=== PATIENT | female | born 1960 | race Caucasian/White ===

== ENCOUNTER 2019-10-03 08:06 | Outpatient (CLI) | payer BC, SELFPAY ==
--- NOTE | ~2019-10-03 | MR_ITS ---
EXAMINATION: MR knee LT wo con DATE: 10/03/2019 09:32 INDICATION: Ganglion, unspecified site. TECHNIQUE: Magnetic resonance imaging (MRI) of the left knee was performed without intravenous contra st. Sequences included axial PD-weighted FS FSE, coronal PD-weighted FSE and PD-weighted FS FSE, sagi ttal PD-weighted FSE, and sagittal T2-weighted FS FSE. COMPARISON: Left knee MRI 03/09/2018, radiographs 03/22/2019 FINDINGS: Medial compartment: There is a radial tear of body of medial meniscus. There is extensive full-thickness cartilage loss o f femoral condyle with mild subchondral edema-like marrow signal intensity. There is full-thickness c artilage loss of tibial condyle involving the central, medial, and anterior articular surface with mi ld subchondral edema-like marrow signal intensity. Osteophytes are noted. Lateral compartment: Lateral meniscus is normal. There is cartilage surface irregularity of tibial condyle and femoral con dyle. Patellofemoral compartment: There is a partial thickness cartilage loss of patellar medial facet and median ridge and cartilage s urface irregularity of patellar lateral facet. There is deep partial thickness cartilage of medial tr ochlea with mild subchondral edema-like marrow signal intensity. Osteophytes are noted. Ligaments and tendons: The anterior and posterior cruciate ligaments are normal. Medial collateral ligament and lateral sarah ateral ligament complex are intact. The patellar tendon is normal. Fluid: There is a small knee joint effusion. There is a moderate-sized Mendez's cyst. In the subcutaneous fat anterolateral to fibular head, there is a 2.1 x 1.1 x 1.0 cm multiloculated ganglion cyst with surro unding edema. There are small ganglion cysts in Hoffa's fat pad. IMPRESSION: 1. Stable multiloculated ganglion cyst with surrounding edema in the subcutaneous fat anterolateral t o the fibular head. 2. Severe chondrosis of medial compartment, moderate chondrosis of patellofemoral compartment, and mi ld chondrosis of lateral compartment. 3. Tear of medial meniscus. 4. Small knee joint effusion. 5. Moderate-sized Mendez's cyst. Reviewed, dictated and finalized at location A. IMPRESSION: 1. Stable multiloculated ganglion cyst with surrounding edema in the subcutaneo us fat anterolateral to the fibular head. 2. Severe chondrosis of medial compartment, moderate chondrosis of patellofemor al compartment, and mild chondrosis of lateral compartment. 3. Tear of medial meniscus. 4. Small knee joint effusion. 5. Moderate-sized Mendez's cyst.
== END 2019-10-03 08:07 | disposition home or self-care (01) ==
PROVIDERS: PCP Family Medicine Adolescent Medicine; Visit Provider Nurse Practitioner Family
DX: M71.22 Synovial cyst of popliteal space [Baker], left knee (principal); M67.462 Ganglion, left knee; M23.204 Derangement of unspecified medial meniscus due to old tear or injury, left knee
CPT/HCPCS: 73721

== ENCOUNTER 2019-10-30 07:47 | Outpatient (CLI) | payer BC, SELFPAY ==
--- NOTE | 2019-10-30 07:50 | ECG_ITS ---
Measurements Intervals [place] Rate: 78 P: 44 [place]: 172 QRS: -26 QRSD: 108 T: 2 QT: 345 QTc: 394 Interpretive Statements SINUS RHYTHM INCOMPLETE RIGHT BUNDLE BRANCH BLOCK POOR R WAVE PROGRESSION, ANTERIOR LEADS BORDERLINE T WAVE ABNORMALITY- INFERIOR LEADS BASELINE ARTIFACT- I, II, III, AVR, AVL, AVF BORDERLINE ECG Electronically Signed On 10-30-2019 8:13:29 CDT by Chemo Richard D.O.
== END 2019-10-30 07:48 | disposition home or self-care (01) ==
LOC: ANHSURGERY 07:50
PROVIDERS: PCP Family Medicine Adolescent Medicine; Visit Provider Orthopaedic Surgery
DX: Z01.810 Encounter for preprocedural cardiovascular examination (principal); I10 Essential (primary) hypertension; I45.10 Unspecified right bundle-branch block
CPT/HCPCS: 93005

== ENCOUNTER 2019-11-03 00:38 | Outpatient (CLI) | payer BC, SELFPAY ==
[2019-11-03 19:30] LABS: SARS-CoV-2 RNA PCR Negative
== END 2019-11-03 00:39 | disposition home or self-care (01) ==
LOC: ANHCOVIDDT 00:38
PROVIDERS: PCP Family Medicine Adolescent Medicine; Visit Provider Orthopaedic Surgery
DX: Z01.812 Encounter for preprocedural laboratory examination (principal); Z20.828 Contact with and (suspected) exposure to other viral communicable diseases
CPT/HCPCS: 87635; C9803; U0003

== ENCOUNTER 2019-11-06 00:53 | Day surgery (SDC) | payer BC, SELFPAY ==
[2019-10-29 08:59] VITALS: BMI 26.6
--- NOTE | 2019-11-05 08:44 | WPDANESEPPF ---
Anes - Initial Pre Proc Eval Procedure: Operation Date: 11/06/19 11:30 Proposed Procedures p Left Knee Arthroscopy, Proceed As Indicated - Tyson Blanton MD s Excision Left Knee Ganglion Cyst - Tyson Blanton MD Date/Time: 11/05/19 08:44 Surgeon: Tyson Blanton MD Pre Op Diagnosis: left knee medial meniscus tear, left knee ganglion Patient Data Age: 59 Gender: F Height: 1.68 m Weight: 74.84 kg Allergies Allergy/AdvReac Type Severity Reaction Status Date / Time codeine AdvReac Mild N/V Verified 11/06/19 09:49 Home Medications Medication Instructions Recorded Confirmed Type ergocalciferol (vitamin D2) 1,250 50,000 unit PO WEEKLY 01/15/19 11/06/19 History mcg (50,000 unit) capsule lisinopril 10 mg tablet 10 mg PO DAILY 01/15/19 11/06/19 History methylcellulose (laxative) 500 mg 500 mg PO DAILY 01/15/19 11/06/19 History tablet L. gasseri-B. bifidum-B longum 1 cap PO DAILY 10/29/19 11/06/19 History [[facility]] cetirizine 10 mg PO DAILY 10/29/19 11/06/19 History estradiol 1 mg PO DAILY 10/29/19 11/06/19 History Patient hx anesthesia problems: none Family hx anesthesia problems: none [facility] Past Medical History Medical History (Updated 11/05/19 @ 08:41 by Benja Angel DO) Closed fracture Ganglion cyst HTN (hypertension) Left knee DJD PONV (postoperative nausea and vomiting) Rheumatic arteritis Right knee DJD Seasonal allergic rhinitis Surgical History Surgical History H/O: hysterectomy Social History Social History Smoking status: Never smoker Alcohol intake: current Substance use: unknown Spiritual care concerns: No Anes - Eval Final PreProcedure Day of Procedure 11/05/19 08:44 Patient weight: overweight Heart: regular rate and rhythm Lungs: clear to auscultation and normal air movement Airway: Mallampati scale class II Neurological: alert and oriented Last oral intake: >/= 8 hours ASA classification: II Emergent: no Anesthetic plan: proceed Anesthesia type and monitoring: general LMA and standard monitoring Informed Consent: The patient's anesthetic plan and its attendant risks and benefits were discussed with the patient/family/POA. Questions were solicited and answers provided to the satisfaction of the patient/family/POA.
[2019-11-06] VITALS (8 sets, daily range): BP systolic 120–198; BP diastolic 82–105; PULSE 75–81; RESP 10–17; TEMP 36.2–36.4; O2SAT 96–100; BMI 27.1
--- NOTE | 2019-11-06 07:24 | WPDHPUPDATE1 ---
History and Physical Update Update Date/Time: 11/06/19 07:24 History and Physical has been reviewed, including an updated exam of the patient. There are NO changes in the patient's condition. Risks, benefits, and alternatives have been discussed and questions answered. Patient agrees to proceed with procedure.
--- NOTE | 2019-11-06 09:50 | SUR.PREOP ---
PT STATES SHE STOPPED ALL HOME MEDICATIONS ONE WEEK AGO. SHE HAS CRUTCHES AT HOME. REFUSED CRUTCH TRAINING.
[2019-11-06] MEDS: CELECOXIB 200 MG CAPSULE PO (09:57)
[2019-11-06] MEDS: ACETAMINOPHEN 500 MG TABLET 1000 MG PO (09:57)
[2019-11-06] MEDS: LACTATED RINGERS 1,000 ML 30 ML IV CONT ×2 (10:12→13:09)
--- NOTE | 2019-11-06 10:21 | SUR.PREOP ---
1002; DR ROSAS NOTIFIED OF VS TAKEN AT 0938 AND AGAIN AT 1000. BP HIGH. PT HAS NOT TAKEN HER LISINOPRIL FOR ONE WEEK. STATES WILL MONITOR IN OR AND TREAT ACCORDINGLY.
[2019-11-06] MEDS: FAMOTIDINE 20 MG/2 ML VIAL IV PUSH (10:27)
[2019-11-06] MEDS: SCOPOLAMINE 1.5 MG PATCH TRANSDERM (10:27)
[2019-11-06] MEDS: ceFAZolin 2 GM/D5W 50 ML 2 GM/50 ML BAG IVPB (11:27)
--- NOTE | 2019-11-06 13:02 | PM.OP ---
Procedure Note - Brief Procedure Note - Brief Date of procedure: 11/06/19 Pre-op diagnosis: left knee medial meniscus tear, left knee ganglion Post-op diagnosis: same Procedure performed: LEFT KNEE SCOPE WITH PARTIAL MEDIAL MENISECTOMY AND MINOR SYNOVECTOMY, WITH EXCISION OF GANGLION LEFT KNEE Anesthesia: GLMA Surgeon: Tyson Blanton MD Estimated blood loss (mL): 20 Drains: No Packing: No Pathology: yes Complications: No immediate complications Condition: stable Disposition: PACU
--- NOTE | 2019-11-06 16:54 | OP_ITS ---
DATE OF PROCEDURE: 11/06/2019 PREOPERATIVE DIAGNOSES: 1. Left knee medial meniscus tear and arthritis. 2. Mass, left knee. PROCEDURE: 1. Left knee arthroscopy with partial medial meniscectomy and minor synovectomy. 2. Excision of mass, left knee. ANESTHESIA: General. COMPLICATIONS: None. INDICATIONS: This is a 59-year-old female, who has arthritis and medial-sided knee pain. She also was diagnosed with a medial meniscus tear. She also had pain on the lateral side of her knee due to a large ganglion cyst and this was causing daily pain. She was indicated for left knee arthroscopy and left knee excision of the mass. DESCRIPTION OF PROCEDURE: The patient was taken to the operating room in stable condition and placed in supine position. General anesthesia was induced and then the left lower extremity was prepped and draped sterilely from the toes to the thigh. Superomedial portal was used for the outflow cannula. Inferolateral portal was used for the camera. The camera was introduced. There was grade 3 chondromalacia and there was an area of complete cartilage loss. There was a lot of synovitis in the superomedial compartment. The medial compartment was entered. There was a large area of full-thickness cartilage loss. There was a complex tear of the medial meniscus. A medial portal was then established and the meniscus tear was debrided down to a smooth base. Next, the ACL was identified and it was intact. There was some partial tears to it, but for the most part it appeared to be intact. Direct visualization with a Karime's and anterior drawer test were performed as well and it seemed that the ACL was working fine. Next, the lateral compartment was entered. There was no tear to the lateral meniscus and there was no significant chondromalacia. Next, patellofemoral joint underwent chondroplasty and then synovectomy was performed in Hoffa synovium compartment due to impingement in deep flexion. Next, the instruments were removed from the knee joint after thorough irrigation and then the arthroscopic wounds were approximated with 4-0 nylon suture and then after that, the left lower extremity was redraped and the surgical team re-gowned and gloved and then the tourniquet was inflated and the left lower extremity then was identified, and there was a large mass at the level just anterior to the fibula. Incision was made over that region down to the subcutaneous tissues. The dissection continued until the mass, which was palpated was identified. It appeared to be a ganglion cyst. Dissection continued and then as we got deeper, the mass started to progress more anteriorly and superiorly until it was at the level anterior to the fibular head. Dissection then continued. Soft tissues were removed from the mass and the mass then was excised in its entirety at the level just proximal to the fibular head. The wound was irrigated thoroughly. The bleeders were cauterized after the tourniquet was deflated. The mass was sent for pathology studies. The wound was then irrigated thoroughly. The bleeders were cauterized again and then the deep fascial layers were approximated with #0 Vicryl suture. Subcutaneous tissues were approximated with 2-0 Vicryl, and then the skin was approximated with 3-0 running Quill type braided suture, and then Dermabond was placed, and then Steri-Strips were placed and then a sterile dressing was applied. The wounds on the arthroscopic site that had been approximated, then underwent dressing and the whole knee was wrapped in 4x4s and Webril, and then the patient was then extubated and sent to Recovery in stable condition. Dacia I MT: Sara
== END 2019-11-06 15:05 | disposition home or self-care (01) ==
PROVIDERS: PCP Family Medicine Adolescent Medicine; Visit Provider Orthopaedic Surgery
PROC: (CPT 29870; principal; 2019-11-06 11:30)
PROC: (CPT 29881; 2019-11-06 11:30)
DX: S83.232A Complex tear of medial meniscus, current injury, left knee, initial encounter (principal); X58.XXXA Exposure to other specified factors, initial encounter; Y93.9 Activity, unspecified; M67.462 Ganglion, left knee; I10 Essential (primary) hypertension
CPT/HCPCS: 29881; 27630; 88304; 88305; A9270; J0690; J2250; J2405; J2704; J3010; J7120

== ENCOUNTER → 2020-04-10 07:26 | Outpatient (CLI) | payer BC, SELFPAY ==
--- NOTE | ~2020-04-10 | MM_ITS ---
EXAMINATION: MM screening [facility] BI w alan HISTORY: Screening TECHNIQUE: Craniocaudal and mediolateral oblique 3-D tomosynthesis images were obtained and synthetic 2-D images were generated. CAD analysis was submitted and interpreted. COMPARISON: Comparison to multiple prior studies sequentially, with oldest reviewed study dated 09/28. BREAST PARENCHYMAL COMPOSITION: The breasts are heterogeneously dense, which may obscure small masses . FINDINGS: There is a developing cluster of calcifications in the upper inner quadrant of the right br east. The left breast is stable without evidence for malignancy. IMPRESSION: 1. Developing cluster of calcifications upper inner quadrant of the right breast. 2. Magnification views are recommended. BI-RADS Category 0: Incomplete: Needs additional imaging evaluation. Reviewed, dictated and finalized at location A. DINATOR OF ONLINE PROGRAMS IMPRESSION: 1. Developing cluster of calcifications upper inner quadrant of the right breas t. 2. Magnification views are recommended. BI-RADS Category 0: Incomplete: Needs additional imaging evaluation.
== END ==
PROVIDERS: PCP Family Medicine Adolescent Medicine; Visit Provider Obstetrics & Gynecology Gynecology
DX: Z12.31 Encounter for screening mammogram for malignant neoplasm of breast (principal); R92.8 Other abnormal and inconclusive findings on diagnostic imaging of breast
CPT/HCPCS: 77063; 77067

== ENCOUNTER → 2020-05-07 08:23 | Outpatient (CLI) | payer BC, SELFPAY ==
--- NOTE | ~2020-05-07 | MM_ITS ---
EXAMINATION: MM diagnostic mammo unilat RT HISTORY: Indeterminate right breast calcifications on screening mammogram TECHNIQUE: Additional views of the right breast were performed. CAD analysis was submitted and interp reted. COMPARISON: 04/02/2020, 11/20/2018, 10/25/2017, 10/08/2016 FINDINGS: There are grouped coarse heterogeneous calcifications in the posterior third of the upper i nner breast at the 1:00 location 7 cm from the nipple. No associated mass is identified. IMPRESSION: 1. Suspicious right breast calcifications. 2. Stereotactic biopsy is recommended. BI-RADS category 4, suspicious findings. Reviewed, dictated and finalized at location A. SEQUENCING ASSOCIATE
== END ==
PROVIDERS: PCP Family Medicine Adolescent Medicine; Visit Provider Obstetrics & Gynecology Gynecology
DX: R92.1 Mammographic calcification found on diagnostic imaging of breast (principal)
CPT/HCPCS: 77065

== ENCOUNTER 2020-05-19 12:39 | Outpatient (CLI) | payer BC, SELFPAY ==
--- NOTE | ~2020-05-19 | MM_ITS ---
EXAMINATION: MM stereotactic bx RT, MM post biopsy diagnostic RT, MM stereotactic specimen RT, Specim en Radiograph, Tissue Marker Clip Placement, Unilateral Mammogram DATE: 05/19/2020 14:26 (accession [id number]), 05/19/2020 14:28 (accession [id number]), 05/19 14:27 (accession [id number]) INDICATION: Abnormal mammogram: Suspicious calcifications reported in posterior third of upper inner right breast. TECHNIQUE AND FINDINGS: The risks and potential benefits of the procedure were discussed with the patient and written informe d consent was obtained. Timeout procedure was performed. The patient was placed in the prone position on the dedicated stereotactic table with the right breast in mediolateral compression, and the area of interest was localized and targeted utilizing digital imaging with stereotaxis. After sterile preparation of the skin, 1% lidocaine was utilized for local anesthesia at the skin pun cture site and 1% lidocaine with epinephrine was utilized for deeper local anesthesia/is about the bi opsy site. A 9G ScaleXtreme vacuum assisted biopsy needle was advanced to the level of the calcification o f interest from a medial approach utilizing stereotactic guidance and a total of 15 tissue core biops ies were obtained. A specimen radiograph demonstrates that the calcifications of interest are included within the tissue cores. A tissue marker clip was then placed at the biopsy site. A digital mammographic exposure co nfirmed the successful deployment of the biopsy marker. The needle was removed and hemostasis was ac hieved. A sterile bandage was applied. The patient tolerated the procedure well and there is no kim dence of significant immediate complication. The patient was given verbal as well as written postpro cedural instructions prior to discharge from the department. Tissue cores were submitted to surgical pathology for histologic analysis. A 2-view right unilateral digital mammogram was obtained post procedure, demonstrating the tissue mar ker clip in expected position. IMPRESSION: 1. Successful stereotactic biopsy of upper inner quadrant right breast calcifications, followed by tissue marker clip placement. Please refer to pathology report for histologic analysis. Reviewed, dictated and finalized at Location A. Reviewed, dictated and finalized at location A. UE COORDINATOR IMPRESSION: 1. Successful stereotactic biopsy of upper inner quadrant right breast calcif ications, followed by tissue marker clip placement. Please refer to pathology report for histologic analysis. IMPRESSION: 1. Successful stereotactic biopsy of upper inner quadrant right breast calcif ications, followed by tissue marker clip placement. Please refer to pathology report for histologic analysis.
== END 2020-05-19 12:40 | disposition home or self-care (01) ==
PROVIDERS: PCP Family Medicine Adolescent Medicine; Visit Provider Family Medicine Adolescent Medicine
DX: N63.10 Unspecified lump in the right breast, unspecified quadrant (principal); N60.31 Fibrosclerosis of right breast; N60.81 Other benign mammary dysplasias of right breast; N60.41 Mammary duct ectasia of right breast
CPT/HCPCS: 19081; 77065; 88305; A4648

== ENCOUNTER 2020-09-25 07:59 | Outpatient (CLI) | payer OTHER, SELFPAY ==
--- NOTE | 2020-09-25 08:52 | ECG_ITS ---
Measurements Intervals [place] Rate: 84 P: 48 [place]: 172 QRS: -23 QRSD: 91 T: 11 QT: 341 QTc: 403 Interpretive Statements SINUS RHYTHM INCOMPLETE RIGHT BUNDLE BRANCH BLOCK DELAYED PRECORDIAL R/S TRANSITION BORDERLINE T WAVE ABNORMALITY- ANT/INF LEADS BASELINE ARTIFACT- I, II, III, AVR, AVL, AVF BORDERLINE ECG Electronically Signed On 09-25-2020 9:08:42 CDT by Chemo Richard D.O.
[2020-09-25 09:16] LABS: Basophils Percent Auto 0.6 % (0.2-1.2); Eosinophils Absolute Auto 0.1 K/mm3 (0-0.3); Eosinophils Percent Auto 0.9 % (0-4.4); Hemoglobin 14.5 g/dL (12.0-15.0); Immature Granulocyte Absolute 0.03 K/mm3 (0.00-0.031); Immature Granulocyte Percent A 0.5 % (0-0.5); Lymphocytes Percent Auto 26.7 % (18.3-44.2); Mean Corpuscular HGB Conc 31.5 g/dl (32-36); Mean Corpuscular Hemoglobin 29.4 pg (26-34); Mean Corpuscular Volume 93.3 fl (80-100); Monocytes Absolute Auto 0.5 K/mm3 (0.1-0.6); Monocytes Percent Auto 7.8 % (2.6-8.5); Neutrophils Percent Auto 63.5 % (45.5-73.1); Platelet Count Result 235 k/mm3 (150-375); Red Blood Count 4.93 M/mm3 (4.2-5.4); Red Cell Distribution Width 12.8 % (11.5-14.5); White Blood Count 6.4 K/mm3 (4.5-10.0)
[2020-09-25 09:17] LABS: Add Urine Microscopic? NO; Appearance Urine Clear (Clear); Bilirubin Urine Negative (Negative); Blood Urine Negative (Negative); Color Urine Yellow (Yellow); Glucose Urine UA Negative (Negative); Ketones Urine Negative (Negative); Leukocyte Esterase Ur Negative LEU/UL (Negative); Nitrate Urine Negative (Negative); Protein Urine Negative (Negative); Specific Grav Ur 1.016 (1.001-1.035); Urobilinogen Urine Negative mg/dL (<2.0)
[2020-09-25 09:25] LABS: Albumin Level 4.1 g/dL (3.5-5.1); Anion Gap 6 mmol/L (8-16); Blood Urea Nitrogen 11 mg/dL (7-17); Calcium 9.4 mg/dL (8.4-10.2); Carbon Dioxide 30 mmol/L (22-30); Chloride 103 mmol/L (98-107); Estimated Glomerular Filt Rate > 60; Glucose 93 mg/dL (65-105); Potassium 3.7 mmol/L (3.4-5.0); Sodium 139 mmol/L (137-145)
[2020-09-25 09:27] LABS: Urine Cotinine NEGATIVE
[2020-09-25 09:42] LABS: Hemoglobin A1C 5.4 % (<5.7)
[2020-09-25 09:54] LABS: Prothrombin Time 12.8 Seconds (11.1-14.7)
[2020-09-25 09:56] LABS: Partial Thromboplastin Time 24.3 SECONDS (22.3-36.8)
== END 2020-09-25 08:00 | disposition home or self-care (01) ==
LOC: ANHSURGERY 08:05
PROVIDERS: PCP Family Medicine Adolescent Medicine; Visit Provider Orthopaedic Surgery
DX: Z01.818 Encounter for other preprocedural examination (principal); M17.12 Unilateral primary osteoarthritis, left knee
CPT/HCPCS: 80048; 80307; 81003; 82040; 83036; 85025; 85610; 85730; 87081; 93005

== ENCOUNTER 2020-10-22 00:18 | Day surgery (SDC) | payer OTHER, SELFPAY ==
[2020-09-25 08:25] VITALS: BP 196/98; PULSE 92; RESP 18; TEMP 36.7; O2SAT 97; BMI 28.1
[2020-10-22] VITALS (13 sets, daily range): BP systolic 105–143; BP diastolic 55–86; PULSE 75–95; RESP 9–22; TEMP 36.2–36.7; O2SAT 94–99; BMI 27.3
--- NOTE | ~2020-10-22 | XR_ITS ---
EXAMINATION: XR knee LT 2V DATE: 10/22/2020 10:04 INDICATION: Left knee arthroplasty. Postop. TECHNIQUE: 2 views of left knee were obtained. COMPARISON: Left knee radiographs 07/31/2020 FINDINGS: There is a total left knee arthroplasty without patellar resurfacing in near-anatomic align ment. No fracture. There is gas in the knee joint and soft tissues, consistent with recent surgery. A nterior skin wan are noted. IMPRESSION: 1. Total left knee arthroplasty in near-anatomic alignment. Reviewed, dictated and finalized at location A.
[2020-10-22] MEDS: ACETAMINOPHEN 500 MG TABLET 1000 MG PO (06:51)
--- NOTE | 2020-10-22 06:59 | WPDANESEPPF ---
Anes - Initial Pre Proc Eval Procedure: Operation Date: 10/22/20 07:30 Proposed Procedures p Left Total Knee Arthroplasty - Tyson Blanton MD Date/Time: 10/22/20 06:59 Surgeon: Tyson Blanton MD Pre Op Diagnosis: Left Knee DJD Patient Data Age: 60 Gender: F Height: 1.66 m Weight: 75.8 kg Last Vital Signs Temp 36.7 C 10/22/20 06:45 Pulse 90 10/22/20 06:45 Resp 18 10/22/20 06:45 BP 143/86 H 10/22/20 06:45 Pulse Ox 98 10/22/20 06:45 Allergies Allergy/AdvReac Type Severity Reaction Status Date / Time codeine AdvReac Mild N/V Verified 10/22/20 06:35 Home Medications Medication Instructions Recorded Confirmed Type ergocalciferol (vitamin D2) 1,250 See Rx Instructions .ROUTE .COMPLEX 01/15/19 10/22/20 History mcg (50,000 unit) capsule lisinopril 10 mg tablet 10 mg PO QAM 01/15/19 10/22/20 History methylcellulose (laxative) 500 mg 500 mg PO DAILY 01/15/19 10/22/20 History tablet Adonit Colon Health 1 cap PO DAILY 10/29/19 10/22/20 History cetirizine 10 mg PO DAILY 10/29/19 10/22/20 History estradiol 1 mg PO DAILY 10/29/19 10/22/20 History diclofenac sodium 75 mg 75 mg PO BID #60 tablet 07/31/20 10/22/20 Rx tablet,delayed release chlorhexidine gluconate 4 % 1 applic TOPICAL ONCE #237 ml 08/06/20 10/22/20 Rx topical liquid fesoterodine [Toviaz] 4 mg PO DAILY 09/25/20 10/22/20 History Patient hx anesthesia problems: post op nausea/vomiting Family hx anesthesia problems: none PMFSH Past Medical History Medical History Closed fracture Ganglion cyst HTN (hypertension) Knee joint effusion Left knee DJD PONV (postoperative nausea and vomiting) Rheumatic arteritis Right knee DJD Seasonal allergic rhinitis Surgical History Surgical History H/O: hysterectomy Family History Family History Other Family history of cardiovascular disease Social History Social History Second hand tobacco smoke exposure: No Alcohol intake: current Alcohol use details: STATES MAYBE 6 DRINKS A MONTH Substance use: unknown Substance use type: does not use Living arrangements: with family Spiritual care concerns: No Anes - Eval Final PreProcedure Day of Procedure 10/22/20 06:59 Patient weight: overweight Heart: regular rate and rhythm Lungs: clear to auscultation Airway: Mallampati scale class 1 Neurological: alert and oriented Last oral intake: >/= 8 hours ASA classification: III Emergent: no Anesthetic plan: proceed Anesthesia type and monitoring: general LMA and standard monitoring Informed Consent: The patient's anesthetic plan and its attendant risks and benefits were discussed with the patient/family/POA. Questions were solicited and answers provided to the satisfaction of the patient/family/POA.
[2020-10-22] MEDS: LACTATED RINGERS 1,000 ML 30 ML IV CONT ×2 (07:13→09:50)
[2020-10-22] MEDS: TRANEXAMIC ACID 1,000MG/ISO100 1,000 MG/100 ML BAG 200 MG IVPB (07:13)
[2020-10-22] MEDS: SCOPOLAMINE 1.5 MG PATCH TRANSDERM (07:17)
--- NOTE | 2020-10-22 07:18 | WPDHPUPDATE1 ---
History and Physical Update Update Date/Time: 10/22/20 07:18 History and Physical has been reviewed, including an updated exam of the patient. There are NO changes in the patient's condition. Risks, benefits, and alternatives have been discussed and questions answered. Patient agrees to proceed with procedure.
[2020-10-22] MEDS: ceFAZolin 2 GM/D5W 50 ML 2 GM/50 ML BAG IVPB ×2 (07:29→13:15)
--- NOTE | 2020-10-22 09:04 | SUR.OPER ---
Biomet knee system left knee
--- NOTE | 2020-10-22 09:48 | W.PM.PROC2 ---
Procedure Note - Detailed Date of Procedure 10/22/20 Pre-op Diagnosis Left Knee DJD Post-op Diagnosis same Procedure Performed L TKA Surgeon Tyson Blanton MD Anesthesia general Description of Procedure THE LEFT KNEE WAS PREPPED AND DRAPED IN THE STERILE FASHION. THERE WAS A 10 DEGREE FLEXION CONTRACTURE. A MIDLINE SKIN INCISION WAS MADE. A MEDIAL PARAPATELLAR ARTHROTOMY WAS MADE. THE PATELLA WAS EVERTED. THERE WAS TRICOMPARTMENT DJD. THERE WAS MINIMAL PATELLA DJD. AN INTRAMEDULLARY AMAN WAS PLACED IN THE FEMUR. A DISTAL FEMORAL CUT WAS MADE IN 5 DEGREES OF VALGUS REMOVING APPROXIMATELY 9 MM OF BONE FROM THE DISTAL FEMUR. THE FEMUR WAS SIZED TO 65. A 60 FEMORAL CUTTING BLOCK WAS PLACED IN 3 DEGREES OF EXTERNAL ROTATION AND IN ALIGNMENT WITH SHER'S LINE AND THE TRANSEPICONDYLAR AXIS. ANTERIOR POSTERIOR AND CHAMFER CUTS WERE MADE. THE CUTS WERE EXCELLENT. NEXT AN INTRAMEDULLARY CUTTING GUIDE WAS PLACED IN THE TIBIA. A TRANS TIBIAL CUT WAS MADE ALONG THE LONG AXIS OF THE TIBIA. APPROXIMATELY 10 MM OF BONE WAS REMOVED FROM THE HIGH SIDE OF THE TIBIA. THE TIBIA WAS THEN PLANED TO A SMOOTH SURFACE. POSTERIOR FEMORAL OSTEOPHYTES WERE REMOVED FROM THE FEMORAL CONDYLES. A 67 TIBIAL TRIAL WAS PLACED IN ALIGNMENT WITH THE 1/3 MEDIAL ASPECT OF THE TIBIAL TUBERCLE. THEN A 65 FEMORAL TRIAL COMPONENT WAS PLACED. BOTH HAD EXCELLENT FITS. EVENTUALLY A 10 MM POLYETHYLENE TRIAL COMPONENT WAS PLACED. THE KNEE WAS TAKEN THROUGH A RANGE OF MOTION. THE KNEE CAME OUT TO FULL EXTENSION. THERE WAS NO ABNORMAL TILT TO THE PATELLA. THERE WAS GOOD A/P AND VARUS/VALGUS STABILITY. THERE WAS NO EXCESSIVE ROLL BACK WITH FLEXION. THE TRIAL COMPONENTS WERE REMOVED. THEN A 60 FEMORAL COMPONENT AND 67 TIBIAL COMPONENT WITH A 10 POLYETHYLENE COMPONENT WERE CEMENTED INTO PLACE. ONCE THE CEMENT WAS HARD THE KNEE WAS TAKEN THROUGH A ROM AGAIN AND FOUND TO BE STABLE WITH NO PATELLA TILT NO EXCESSIVE ROLL BACK WITH FLEXION AND GOOD STABILITY WITH COMPLETE AND FULL EXTENSION. THE KNEE WAS IRRIGATED WITH STERILE BETADINE AND WATER FOR ABOUT 3 MINUTES. THE BLEEDERS WERE CAUTERIZED. THE ARTHROTOMY WAS REPAIRED WITH NUMBER 1 VICRYL. THE SUB CUTANEOUS LAYER WITH 2-0 VICRYL AND THE SKIN WITH DONY. THE WOUND WAS WASHED AND A STERILE DRESSING WAS APPLIED. PATIENT WAS EXTUBATED. Estimated Blood Loss -150.0 Pathology none sent Complications No immediate complications Condition stable Disposition PACU
[2020-10-22] MEDS: fentaNYL CITRATE INJ (*CRX) 100 MCG/2 ML VIAL 25 MCG IV PUSH ×4 (10:04→10:28)
--- NOTE | 2020-10-22 10:06 | SUR.OPER ---
TO PACU/DR SIERRA ASSESSED LEFT DISTAL MEDIAL KNEE AREA 1/2 WHITISH CIRCULAR AREA SLIGHTLY COOL WITH NO BLANCHING IN OR. SURROUNDING AREA DARK MAUVE COLOR/ON ARRIVAL TO PACU WHITISH AREA BEGINING TO SEGUNDO AND AND WARM UP. NO ROSE TO BE APPLIED PER DR SIERRA AND PACU TO MONITOR. PATIENT ABLE TO WIGGLE TOES,FLEX FOOT FORWARD AND BACKWARD WITHOUT DIFFICULTY AND LIFT LEG OFF BED.
--- NOTE | 2020-10-22 10:18 | WPDANESPNB ---
Anes - Peripheral Nerve Block Date/Time: 10/22/20 10:18 I have discussed with the patient/family/POA the placement of a peripheral nerve block for post-operative pain management, including associated risks, benefits, complications, and side effects. Alternative methods of post-operative analgesia were detailed. Questions were solicited and answers provided to the satisfaction of the patient/family/POA. Time-Out: A pre-procedural Time-Out was completed immediately before starting the procedure and confirmed: Patient Identification, Site, Procedure, Patient Position and the Availability of Requisite Equipment. Clinical Indications: Acute post-operative pain management requested by the operative surgeon. Nerve Block Insertion Note Anes-nerve block: femoral left Patient position: supine Skin prep: chlorhexidine Needle: 22 gauge, stimulating, insulated echogenic needle. Needle length: 50 mm Technique: nerve stimulation lost at (mA) (0.27) Technique comment: mid 2mg morphine 10mg Injectate: bupivacaine 0.25% with epi 5 mcg/ml (30ml) Observations: tolerated well Complications: none Procedure start time:: 722 Procedure end time:: 727
[2020-10-22] MEDS: oxyCODONE HCL (*CRX) 5 MG TAB IR PO (13:30)
== END 2020-10-22 14:00 | disposition home or self-care (01) ==
PROVIDERS: PCP Family Medicine Adolescent Medicine; Visit Provider Orthopaedic Surgery
PROC: (CPT 27447; principal; 2020-10-22 07:30)
DX: M17.12 Unilateral primary osteoarthritis, left knee (principal); G89.18 Other acute postprocedural pain; I10 Essential (primary) hypertension
CPT/HCPCS: 27447; 64447; 36415; 73560; 80048; 80307; 81003; 82040; 83036; 85025; 85610; 85730; 86850; 86900; 86901; 87081; 93005; 97110; 97161; A9270; C1713; C1776; J0171; J0690; J2250; J2270; J2795; J3010; J7030; J7120

== ENCOUNTER → 2021-05-27 17:50 | Outpatient (CLI) | payer OTHER, SELFPAY ==
--- NOTE | ~2021-05-27 | MM_ITS ---
EXAMINATION: MM screening [facility] BI w alan HISTORY: Screening mammogram, family history of breast cancer in her sister. TECHNIQUE: Craniocaudal and mediolateral oblique 3-D tomosynthesis images were obtained and synthetic 2-D images were generated. CAD analysis was submitted and interpreted. COMPARISON: 05/07/2020, 04/10/2020 [id number] BREAST PARENCHYMAL COMPOSITION: The breasts are heterogeneously dense, which may obscure small masses . FINDINGS: There is no suspicious mass, calcification, or architectural distortion to suggest malignan cy in either breast. There has been no suspicious interval change. IMPRESSION: 1. No mammographic evidence of malignancy. 2. Recommend routine screening mammography in one year. BI-RADS Category 1: Negative Reviewed, dictated and finalized at location A.
--- NOTE | ~2021-05-27 | DEXA_ITS ---
Bone Density Report Name: ELZA DE LA FUENTE Age: 61 Sex: Female Ethnicity: White Date of : 1960 Indication: monitoring treatment; height loss; prior fracture; hysterectomy; postmenopausal Referring Provider: SCOTTY BANG Study: Bone densitometry was performed. Exam Date: May 27, 2021 Accession number: [id number] Bone Density: Region BMD T-score Z-score Classification AP Spine (L1-L4) 1.040 -0.1 1.4 Normal Femoral Neck (Left) 0.834 -0.1 1.1 Normal Total Hip (Left) 0.948 0.0 1.0 Normal Femoral Neck (Right) 0.790 -0.5 0.8 Normal Total Hip (Right) 0.912 -0.2 0.7 Normal Total Hip Mean 0.930 -0.1 0.9 Normal World Health Organization criteria for BMD impression classify patients as: Normal (T-score at or above -1.0), Osteopenia (T-score between -1.0 and -2.5), or Osteoporosis (T-score at or below -2.5). 10-year Fracture Risk: FRAX not reported because: All T-scores for Spine Total, Hip Total, Femoral Neck at or above -1.0 Treated for osteoporosis Previous Exams: Region Exam Age BMD T-score BMD Change BMD Change Date g/cm2 vs Baseline vs Previous AP Spine(L1-L4) 05/27/2021 61 1.040 -0.1 -0.083* -0.016 11/20/2018 58 1.056 0.1 -0.067* -0.067* 09/28/2014 54 1.123 0.7 Total Hip(Left) 05/27/2021 61 0.948 0.0 -0.146* -0.072* 11/20/2018 58 1.019 0.6 -0.074* -0.074* 09/28/2014 54 1.093 1.2 Total Hip(Right) 05/27/2021 61 0.912 -0.2 -0.040* 0.033* 11/20/2018 58 0.879 -0.5 -0.073* -0.073* 09/28/2014 54 0.951 0.1 *Denotes significance at 95% confidence level, LSC for AP Spine = 0.022 g/cm2, LSC for Total Hip = 0.027 g/cm2 Clinical Information Provided by Patient: Has had a low trauma fracture Is being treated for osteoporosis Has used the following medications: HRT (i.e. estrogen/hormone therapy), Vitamin D Has the following medical conditions: Hysterectomy Patient maximum height was 66.0 Menopause Age: 53 No regular weight bearing exercise Drinks caffeinated beverages Onset of menses at age 14 Number of children 1 Impression: The patient has normal bone mass. The patient has risk factors, including: previous fracture. The BMD for the Total Hip(Left) decreased, changing by -0.072 since the last DXA exam. Discussion: SIGNIFICANT BONE LOSS OBSERVED. Adherence to therapy (including calcium and vitamin D
== END ==
PROVIDERS: Visit Provider Obstetrics & Gynecology Gynecology
DX: Z12.31 Encounter for screening mammogram for malignant neoplasm of breast (principal); Z78.0 Asymptomatic menopausal state
CPT/HCPCS: 77063; 77067; 77080

== ENCOUNTER → 2021-07-30 16:10 | Outpatient (CLI) | payer OTHER, SELFPAY ==
--- NOTE | ~2021-07-30 | XR_ITS ---
EXAMINATION: XR foot RT min 3V DATE: 07/30/2021 16:28 INDICATION: Right foot pain. TECHNIQUE: 4 views of right foot were obtained. COMPARISON: None. FINDINGS: Bone alignment is normal. No fracture. There is moderate osteoarthritis of first metatarsop halangeal joint and mild osteoarthritis of some of the interphalangeal joints. There is an enthesophy te at plantar aspect of calcaneal tuberosity. IMPRESSION: 1. Polyarticular osteoarthritis. Reviewed, dictated and finalized at location A.
--- NOTE | ~2021-07-30 | XR_ITS ---
EXAMINATION: XR foot LT min 3V DATE: 07/30/2021 16:28 INDICATION: Left foot pain. TECHNIQUE: 4 views of left foot were obtained. COMPARISON: None. FINDINGS: Bone alignment is normal. No fracture. There is severe osteoarthritis of first metatarsopha langeal joint and mild osteoarthritis of some of the interphalangeal joints. There is an enthesophyte at plantar aspect of calcaneal tuberosity. IMPRESSION: 1. Polyarticular osteoarthritis. Reviewed, dictated and finalized at location A.
== END ==
PROVIDERS: PCP Family Medicine Adolescent Medicine; Visit Provider Physician Assistant
DX: M19.072 Primary osteoarthritis, left ankle and foot (principal); M19.071 Primary osteoarthritis, right ankle and foot
CPT/HCPCS: 73630

== ENCOUNTER 2023-07-27 09:54 | Outpatient (CLI) | payer OTHER, SELFPAY ==
--- NOTE | ~2023-07-27 | XR_ITS ---
Right foot Technique: AP and lateral views were obtained. Clinical History: Osteoarthritis Findings: No acute fracture or dislocation is seen. There is minimal degenerative change of the first MTP joint. Soft tissues are unremarkable. Impression: Minimal degenerative change of the first MTP joint. Reviewed, dictated and finalized at location . Impression: Minimal degenerative change of the first MTP joint.
--- NOTE | ~2023-07-27 | XR_ITS ---
Left foot Technique: AP and lateral views were obtained. Clinical History: Osteoarthritis Findings: No acute fracture or dislocation is seen. Osseous alignment is anatomic. There is moderate degenerative change of the first MTP joint. Soft tissues are unremarkable. Impression: Moderate degenerative change of the first MTP joint. Reviewed, dictated and finalized at location . Impression: Moderate degenerative change of the first MTP joint.
== END 2023-07-27 09:55 ==
LOC: MICIMG 09:56
PROVIDERS: PCP Nurse Practitioner Family; Visit Provider Nurse Practitioner Family
DX: M19.072 Primary osteoarthritis, left ankle and foot (principal); M19.071 Primary osteoarthritis, right ankle and foot
CPT/HCPCS: 73620

== ENCOUNTER 2023-09-09 10:58 | Outpatient (CLI) | payer OTHER, SELFPAY ==
--- NOTE | ~2023-09-09 | MM_ITS ---
EXAMINATION: MM screening kristina BI w alan HISTORY: Screening mammogram, family history of breast cancer in her sister. TECHNIQUE: Craniocaudal and mediolateral oblique 3-D tomosynthesis images were obtained and synthetic 2-D images were generated. CAD analysis was submitted and interpreted. COMPARISON: 08/17/2022, 05/27/2021, 05/07/2020 BREAST PARENCHYMAL COMPOSITION:Dense: The breasts are heterogeneously dense, which may obscure small masses. FINDINGS: No suspicious mass, calcification, or architectural distortion are identified in either sangeeta ast to suggest malignancy. There has been no suspicious interval change. IMPRESSION: No mammographic evidence of malignancy. Recommend routine screening mammography in one year. BI-RADS Category 1: Negative Reviewed, dictated and finalized at location .
== END 2023-09-09 10:59 ==
LOC: MICIMG 10:59
PROVIDERS: PCP Obstetrics & Gynecology Gynecology; Visit Provider Obstetrics & Gynecology Gynecology
DX: Z12.31 Encounter for screening mammogram for malignant neoplasm of breast (principal)
CPT/HCPCS: 77063; 77067

== ENCOUNTER 2023-12-02 02:38 | Day surgery (SDC) | payer OTHER, SELFPAY ==
[2023-11-08 15:51] VITALS: BMI 25.9
[2023-12-02] MEDS: LACTATED RINGERS 1,000 ML 150 ML IV CONT (07:27)
--- NOTE | 2023-12-02 07:56 | WPDANESEPPF ---
Anes - Initial Pre Proc Eval Procedure: Operation Date: 12/02/23 08:30 Proposed Procedures p Screening Colonoscopy - Primitivo Grimaldo MD Date/Time: 12/02/23 07:56 Surgeon: Primitivo Grimaldo MD Pre Op Diagnosis: neoplasm screening Patient Data Age: 63 Gender: F Height: 1.7 m Weight: 79.7 kg Allergies Allergy/AdvReac Type Severity Reaction Status Date / Time codeine AdvReac Mild N/V Verified 12/02/23 07:08 Home Medications Medication Instructions Recorded Confirmed Type ergocalciferol (vitamin D2) 1,250 See Rx Instructions .Route .COMPLEX 01/15/19 12/02/23 History mcg (50,000 unit) capsule (Vitamin D2) methylcellulose (laxative) 500 mg 500 mg PO DAILY 01/15/19 12/02/23 History tablet (Fiber Therapy (methylcellulose)) Lactobacills gasseri-Bifidobac 1 cap PO DAILY 10/29/19 12/02/23 History bifidum,longum 1.5 billion cell capsule ([employer] (acquired by [employer] in 2014)) cetirizine 10 mg tablet 10 mg PO DAILY 10/29/19 12/02/23 History estradiol 1 mg tablet 1 mg PO DAILY 10/29/19 12/02/23 History lisinopril 20 1 tablet PO DAILY #90 tabs 05/25/23 12/02/23 Rx mg-hydrochlorothiazide 12.5 mg tablet meloxicam 15 mg tablet See Rx Instructions .Route 11/08/23 12/02/23 History .COMPLEX PRN Pain Patient hx anesthesia problems: none Family hx anesthesia problems: none Results Review: All pre-operative results and documents have been reviewed as part of the pre-operative evaluation. [facility] Past Medical History Medical History Chronic pain of left knee Chronic pain of right knee HTN (hypertension) Left knee DJD Primary osteoarthritis of both knees Primary osteoarthritis of right knee Rheumatic arteritis Right knee DJD Seasonal allergic rhinitis Surgical History Surgical History H/O: hysterectomy for benign tumor History of back surgery History of knee replacement Presence of left artificial knee joint Presence of right artificial knee joint Family History Family History Father Acute myocardial infarction Family history of cardiovascular disease Heart disease Mother Cirrhosis Other Hypertension Social History Social History Smoking status: Never smoker Second hand tobacco smoke exposure: Yes Alcohol intake: current Alcohol use details: STATES MAYBE 6 DRINKS A MONTH Substance use: never Substance use type: does not use Living arrangements: with family Occupation/Education: occupation Gender identity (if verbalized by the patient): Female Sexual Orientation (if Verbalized by the Patient): Straight or Heterosexual Spiritual care concerns: No Agree to blood products: Yes Anes - Eval Final PreProcedure Day of Procedure 12/02/23 07:56 Patient weight: overweight Heart: regular rate and rhythm Lungs: clear to auscultation Airway: Mallampati scale class II Neurological: alert and oriented Last oral intake: >/= 8 hours ASA classification: III Emergent: no Anesthetic plan: proceed Anesthesia type and monitoring: general GIVS and standard monitoring Results Review: All pre-operative results and documents have been reviewed as part of the pre-operative evaluation. Informed Consent: The patient's anesthetic plan and its attendant risks and benefits were discussed with the patient/family/POA. Questions were solicited and answers provided to the satisfaction of the patient/family/POA.
--- NOTE | 2023-12-02 08:05 | PM.HPGS ---
History of Present Illness History of Present Illness Consent: Risks, benefits, and alternatives have been discussed and questions answered. Patient agrees to proceed with procedure. Chief complaint: neoplasm screening Narrative: Allie Maldonado is a 63 year old female here for screening colonoscopy, last one more than 10 years ago Review of Systems Review of Systems: All systems reviewed & are unremarkable except as noted in HPI and below PMFSH Past Medical History Medical History (Updated 12/02/23 @ 08:07 by Primitivo Grimaldo MD) Chronic pain of left knee Chronic pain of right knee Colon cancer screening HTN (hypertension) Left knee DJD Primary osteoarthritis of both knees Primary osteoarthritis of right knee Rheumatic arteritis Right knee DJD Seasonal allergic rhinitis Surgical History Surgical History H/O: hysterectomy for benign tumor History of back surgery History of knee replacement Presence of left artificial knee joint Presence of right artificial knee joint Family History Family History Father Acute myocardial infarction Family history of cardiovascular disease Heart disease Mother Cirrhosis Other Hypertension Social History Social History Smoking status: Never smoker Second hand tobacco smoke exposure: Yes Alcohol intake: current Alcohol use details: STATES MAYBE 6 DRINKS A MONTH Substance use: never Substance use type: does not use Living arrangements: with family Occupation/Education: occupation Gender identity (if verbalized by the patient): Female Sexual Orientation (if Verbalized by the Patient): Straight or Heterosexual Spiritual care concerns: No Agree to blood products: Yes Meds Home Medications and Allergies Home Medications Medication Instructions Recorded Confirmed Type ergocalciferol (vitamin D2) 1,250 See Rx Instructions .Route .COMPLEX 01/15/19 12/02/23 History mcg (50,000 unit) capsule (Vitamin D2) methylcellulose (laxative) 500 mg 500 mg PO DAILY 01/15/19 12/02/23 History tablet (Fiber Therapy (methylcellulose)) Lactobacills gasseri-Bifidobac 1 cap PO DAILY 10/29/19 12/02/23 History bifidum,longum 1.5 billion cell capsule ([employer]) cetirizine 10 mg tablet 10 mg PO DAILY 10/29/19 12/02/23 History estradiol 1 mg tablet 1 mg PO DAILY 10/29/19 12/02/23 History lisinopril 20 1 tablet PO DAILY #90 tabs 05/25/23 12/02/23 Rx mg-hydrochlorothiazide 12.5 mg tablet meloxicam 15 mg tablet See Rx Instructions .Route 11/08/23 12/02/23 History .COMPLEX PRN Pain Allergies Allergy/AdvReac Type Severity Reaction Status Date / Time codeine AdvReac Mild N/V Verified 12/02/23 07:08 Exam Const: General: comfortable and no acute distress HENMT: Face/Nose/Sinus: Normal nares present Eyes: General: appearance normal, both eyes and all related structures Neck: Neck: no JVD Resp: Auscultation: clear to auscultation bilaterally Cardio: Rate: regular rate Rhythm: regular rhythm GI: Inspection: non-distended GI Palp: Yes Soft to palpation Skin: General skin exam: normal color Neuro: General: gait normal Speech: normal speech Extrem: General: normal to inspection Psych: Mental Status: mental status grossly normal Assessment and Plan Assessment and plan (1) Colon cancer screening: Code(s): Z12.11 - Encounter for screening for malignant neoplasm of colon Status: Acute Assessment and Plan: colonoscopy
[2023-12-02 08:19] VITALS: BP 101/61; PULSE 76; RESP 18; O2SAT 96
[2023-12-02 08:29] VITALS: BP 107/70; PULSE 78; RESP 18; O2SAT 98
[2023-12-02 08:39] VITALS: BP 103/66; PULSE 78; RESP 18; O2SAT 96
== END 2023-12-02 08:45 | disposition home or self-care (01) ==
PROVIDERS: PCP Family Medicine Adolescent Medicine; Referring Provider Nurse Practitioner Family; Visit Provider Internal Medicine Gastroenterology
PROC: 0DJD8ZZ Inspection of Lower Intestinal Tract, Via Natural or Artificial Opening Endoscopic (ICD-10-PCS; CPT 45378; principal; 2023-12-02 08:30)
DX: Z12.11 Encounter for screening for malignant neoplasm of colon (principal); K64.8 Other hemorrhoids; I10 Essential (primary) hypertension; Z96.653 Presence of artificial knee joint, bilateral; Z90.710 Acquired absence of both cervix and uterus
CPT/HCPCS: 45378; J2704; J7120

== ENCOUNTER 2024-09-10 11:46 | Outpatient (CLI) | payer OTHER, SELFPAY ==
--- NOTE | ~2024-09-10 | MM_ITS ---
EXAMINATION: MM screening kristina BI w alan HISTORY: Screening mammogram, family history of breast cancer in her sister. TECHNIQUE: Craniocaudal and mediolateral oblique 3-D tomosynthesis images were obtained and synthetic 2-D images were generated. CAD analysis was submitted and interpreted. COMPARISON: 09/09/2023, 08/17/2022, 05/27/2021 BREAST PARENCHYMAL COMPOSITION:Dense: The breasts are heterogeneously dense, which may obscure small masses. FINDINGS: No suspicious mass, calcification, or architectural distortion are identified in either sangeeta ast to suggest malignancy. There has been no suspicious interval change. IMPRESSION: No mammographic evidence of malignancy. Recommend routine screening mammography in one year. BI-RADS Category 1: Negative Reviewed, dictated and finalized at location .
== END 2024-09-10 11:47 | disposition home or self-care (01) ==
LOC: MICIMG 11:47
PROVIDERS: PCP Family Medicine Adolescent Medicine; Visit Provider Obstetrics & Gynecology Gynecology
DX: Z12.31 Encounter for screening mammogram for malignant neoplasm of breast (principal)
CPT/HCPCS: 77063; 77067